=== PATIENT | male | born 1945 | race Caucasian/White ===

== ENCOUNTER 2019-05-06 07:25 | Day surgery (SDC) | payer OTHER ==
--- NOTE | 2019-05-05 09:32 | NUR ---
GAVE PT SURGERY REMINDER CALL. STATED HE HAD CALLED DR FLORES'S OFFICE ABOUT POISON OAK ON HIS ARMS AND ABDOMEN ( AT THE SURGICAL SITE). MESSAGED ADY AT DR Cabrera'S OFFICE. WAITING FOR RESPONSE.
--- NOTE | 2019-05-05 09:40 | NUR ---
ADY RETURNED CALL AND STATED THAT DR FLORES IS AWARE OF POISON OAK RASH AND IT IS OKAY TO PROCEED.
[~2019-05-06] VITALS: Ht 175.3 cm; Wt 94.2 kg
[2019-05-06] VITALS (20 sets, daily range): BP systolic 119–161; BP diastolic 51–88
[~2019-05-06 07:25] MED LIST: AMLO10TA PO; NAPR-996 PO; OMEG1CAP46 PO; PANT-47 PO; SIMV-42 PO; TERA5CAP4 PO; cefazolin/dext.iso 2gm/100ml 100 ML IV ONE; famotidine 10mg tablet PO ONE; ringers solution, lacted 1,000 ML IV SCH
[2019-05-06] MEDS ORDERED: diphenhydrAMINE 50 mg/ml inj IV ONE (09:05)
[2019-05-06 09:33] LABS: BASOPHILS # (AUTO) 0.1 X10'3 (0-0.2); BASOPHILS % (AUTO) 1.1 % (0-1); EOSINOPHILS # (AUTO) 0.7 X10'3 (0-0.9); EOSINOPHILS % (AUTO) 10.2 % (0-6); LYMPHOCYTES # (AUTO) 1.4 X10'3 (1.1-4.8); LYMPHOCYTES % (AUTO) 19.8 % (21-51); MEAN CORPUSCULAR HEMOGLOBIN 32.1 PG (27.0-31.0); MEAN CORPUSCULAR HGB CONC 35.2 g/dL (33.0-36.5); MEAN CORPUSCULAR VOLUME 91.1 FL (78-98); MEAN PLATELET VOLUME 10.1 FL (7.4-10.4); MONOCYTES # (AUTO) 0.7 X10'3 (0-0.9); NEUTROPHILS # (AUTO) 4.3 X10'3 (1.8-7.7); NEUTROPHILS % (AUTO) 58.9 % (42-75); PRE OP HEMATOCRIT 45.9 % (42.0-52.0); PRE OP HEMOGLOBIN 16.2 g/dL (14.0-17.9); PRE OP PLATELET COUNT 160 X10'3 (140-440); RED BLOOD COUNT 5.04 X10'6 (4.70-6.10); RED CELL DISTRIBUTION WIDTH 13.5 % (11.5-14.5)
[2019-05-06 09:47] LABS: ALBUMIN/GLOBULIN RATIO 1.1 (1.1-1.5); ALKALINE PHOSPHATASE 90 IU/L (46-116); BLOOD UREA NITROGEN 15 MG/DL (7-18); BUN/CREATININE RATIO 14.6 (5.4-32.0); CHLORIDE 106 MMOL/L (99-107); CREATININE 1.03 MG/DL (0.60-1.10); PRE OP ALT 30 U/L (30-65); PRE OP ANION GAP 9 (8-16); PRE OP AST 18 U/L (10-37); PRE OP BILIRUB, TOTAL 0.6 MG/DL (0.0-1.0); PRE OP GLUCOSE 105 MG/DL (70-104); PRE OP POTASSIUM 4.1 MMOL/L (3.4-5.1); PRE OP SODIUM 142 MMOL/L (135-145); TOTAL CARBON DIOXIDE 26.6 MMOL/L (24-32); TOTAL PROTEIN 7.5 G/DL (6.4-8.2); eGFR 70 ML/MIN
[2019-05-06] MEDS ORDERED: ringers solution, lacted 1,000 ML IV SCH (10:27)
[2019-05-06] MEDS ORDERED: ondansetron/PF 4mg/2ml inj IV PRN (10:30)
[2019-05-06] MEDS ORDERED: meperidine/PF 25mg/ml syringe IV PRN ×2 (10:30)
[2019-05-06] MEDS ORDERED: morphine 4 MG/ML inj SYRINge IV PRN ×2 (10:30)
[2019-05-06] MEDS ORDERED: proCHLORperazine 10 MG/2 ml inj IV PRN (10:30)
[2019-05-06] MEDS ORDERED: dexamethasone sod phosphate 10mg/ml inj ONE (11:28)
[2019-05-06] MEDS ORDERED: LIDOcaine 2% (20mg/ml) 5ml vial ONE (11:28)
[2019-05-06] MEDS ORDERED: ondansetron/PF 4mg/2ml inj ONE ×2 (11:28→11:53)
[2019-05-06] MEDS ORDERED: midazolam 2 mg/2 ml injection ONE (11:28)
[2019-05-06] MEDS ORDERED: ceFAZolin 1000mg inj ONE (11:28)
[2019-05-06] MEDS ORDERED: sevoflurane 250ml liquid IH ONE (11:28)
[2019-05-06] MEDS ORDERED: fentaNYL/PF 50MCG/1 ML 2ML syringe ONE ×2 (11:28→12:42)
[2019-05-06] MEDS ORDERED: propofol inj 20 ML IV ONE (11:28)
[2019-05-06] MEDS ORDERED: rocuronium 10mg/ml inj IV ONE (11:29)
[2019-05-06] MEDS ORDERED: BUPIVAcaine/PF 2.5 mg/ml (0.25%) 30ml vial ONE (11:29)
[2019-05-06] MEDS ORDERED: neostigmine methylsulfate 1 MG/ML 10ml vial ONE (11:54)
[2019-05-06] MEDS ORDERED: glycopyrrolate 0.2mg/ml inj ONE (11:54)
--- NOTE | 2019-05-06 13:09 | NUR ---
Received from OR via [facility], accompanied by Anesthesiologist DR JOHN and report given by Anesthesiologist. PT DROWSY, DENIES PAIN, ABDOMEN W/3 LAP SITES W/BANDAIDS CDI. Addendum: 05/06/19 at 1327 by Nancy Neal RN Amended: Links added.
[2019-05-06] MEDS: meperidine/PF 25mg/ml syringe IV PRN ×2 (13:57→14:09)
[2019-05-06] MEDS ORDERED: ketorolac trometh. 30mg/ml inj. IV ONE (15:00)
--- NOTE | 2019-05-06 16:23 | NUR ---
PT UP WALKING AROUND, ATTEMPTING TO VOID, PEPSI GIVEN. Addendum: 05/06/19 at 1623 by Nancy Neal RN Amended: Links added.
[2019-05-06] MEDS ORDERED: LIDOcaine 2% 10ml TOPICAL JELLY (Urojet) MM ONE (17:45)
--- NOTE | 2019-05-06 18:19 | NUR ---
PT VOIDED 100 ML OF LIGHT PINK URINE AFTER SEVERAL ATTEMPTS, BLADDER SCANNED FOR 537 ML URINE POST VOID, 16 TOGOLESE JOLLEY CATHETER PLACED W/STERILE TECHNIQUE, PT TOLERATED PROCEDURE WELL, 700 ML OF YELLOW URINE RETURN. D/C INSTRUCTIONS GIVEN AND GONE OVER W/PT AND PTS WHOM VERBALIZE UNDERSTANDING. PT D/CD TO HOME VIA W/C TO PRIVATE VEHICLE W/O INCIDENT. LATE NOTE: PT STABLE ON FEET W/AMBULATION, DECLINES ANY OTHER PAIN, INCLUDING LEFT SIDE, ONLY DISCOMFORT IS SURGICAL SITE. Addendum: 05/06/19 at 1839 by Nancy Neal RN Amended: Links added.
== END 2019-05-06 18:19 | disposition home or self-care (01) ==
LOC: PAS 07:25
PROVIDERS: ATTEND Surgery
DX: K40.90 Unilateral inguinal hernia, without obstruction or gangrene, not specified as recurrent (principal); I10 Essential (primary) hypertension; N40.0 Benign prostatic hyperplasia without lower urinary tract symptoms; E66.9 Obesity, unspecified; Z68.30 Body mass index [BMI] 30.0-30.9, adult; Z79.899 Other long term (current) drug therapy; Z96.643 Presence of artificial hip joint, bilateral; Z96.612 Presence of left artificial shoulder joint; Z90.49 Acquired absence of other specified parts of digestive tract; Z87.891 Personal history of nicotine dependence
CPT/HCPCS: 36415; 49650; 80053; 85025; C1713; C1781; J0690; J1100; J1200; J1885; J2001; J2175; J2250; J2405; J2704; J2710; J3010; J3490; J7120; A4215; A4314; A4618; A6258

== ENCOUNTER 2022-08-09 18:51 | Emergency (ER) | payer OTHER ==
[~2022-08-09] VITALS: Ht 175.3 cm; Wt 90.0 kg
[~2022-08-09 18:51] MED LIST changes: -cefazolin/dext.iso 2gm/100ml 100 ML IV ONE; -famotidine 10mg tablet PO ONE; -ringers solution, lacted 1,000 ML IV SCH
[2022-08-09 18:55] VITALS: BP 130/72
[2022-08-09] MEDS ORDERED: LIDOcaine 1% W/epiNEPHrine 1:100,000 20ml vial SQ ONE (19:50)
== END 2022-08-09 21:12 | disposition home or self-care (01) ==
LOC: ER 18:51
DX: S81.812A Laceration without foreign body, left lower leg, initial encounter (principal); Z88.8 Allergy status to other drugs, medicaments and biological substances; Z79.899 Other long term (current) drug therapy; Z79.1 Long term (current) use of non-steroidal anti-inflammatories (NSAID); X58.XXXA Exposure to other specified factors, initial encounter; Y93.89 Activity, other specified; Y99.8 Other external cause status; Y92.89 Other specified places as the place of occurrence of the external cause
CPT/HCPCS: 12002; 99282; J7030; 29505; A6258; A6449

== ENCOUNTER 2023-11-14 06:57 | Day surgery (SDC) | payer OTHER ==
[2023-11-13 11:46] LABS: BASOPHILS # (AUTO) 0.1 X10'3 (0-0.2); EOSINOPHILS # (AUTO) 0.2 X10'3 (0-0.9); EOSINOPHILS % (AUTO) 3.3 % (0-6); HEMATOCRIT 47.7 % (42.0-52.0); HEMOGLOBIN 16.3 g/dl (14.0-17.9); LYMPHOCYTES # (AUTO) 1.2 X10'3 (1.1-4.8); LYMPHOCYTES % (AUTO) 16.6 % (21-51); MEAN CORPUSCULAR HEMOGLOBIN 32.4 PG (27.0-31.0); MEAN CORPUSCULAR HGB CONC 34.2 g/dL (33.0-36.5); MEAN CORPUSCULAR VOLUME 94.7 FL (78-98); MEAN PLATELET VOLUME 9.5 FL (7.4-10.4); MONOCYTES # (AUTO) 0.8 X10'3 (0-0.9); MONOCYTES % (AUTO) 11.2 % (2-12); NEUTROPHILS # (AUTO) 4.8 X10'3 (1.8-7.7); NEUTROPHILS % (AUTO) 67.9 % (42-75); PLATELET COUNT 200 X10'3 (140-440); RED BLOOD COUNT 5.04 X10'6 (4.70-6.10); RED CELL DISTRIBUTION WIDTH 13.4 % (11.5-14.5); WHITE BLOOD COUNT 7.1 X10'3 (4.5-11.0)
[2023-11-13 11:56] LABS: ALBUMIN 4.2 G/DL (3.4-5.0); ANION GAP 8 (8-16); BLOOD UREA NITROGEN 12 MG/DL (7-18); BUN/CREATININE RATIO 9.8 (10.0-20.0); CALCIUM 9.5 MG/DL (8.5-10.1); CHLORIDE 103 MMOL/L (99-107); CREATININE 1.22 MG/DL (0.60-1.10); GLUCOSE 106 MG/DL (70-104); POTASSIUM 4.2 MMOL/L (3.5-5.1); SODIUM 139 MMOL/L (135-145); TOTAL CARBON DIOXIDE 28.1 MMOL/L (24-32); eGFR 57 ML/MIN
[2023-11-13 11:58] LABS: INR 1.1 INR; PROTHROMBIN TIME 11.1 SECONDS (9.0-12.0)
[~2023-11-14] VITALS: Ht 175.3 cm; Wt 89.7 kg
[2023-11-14] MEDS ORDERED: amiodarone 150mg/dext, iso-os 100 ML IV ONE (07:15)
[2023-11-14] MEDS ORDERED: normal saline 1000ml 1,000 ML IV SCH (07:15)
[2023-11-14] MEDS ORDERED: MIDAZolam 1mg/ml 10ml vial IV ONE (07:15)
[2023-11-14] MEDS ORDERED: morphine 10mg/ml inj. IV ONE (07:15)
[2023-11-14] MEDS ORDERED: diphenhydrAMINE 25mg capsule PO ONE (07:15)
[2023-11-14] MEDS ORDERED: LORazepam 0.5 MG tablet PO ONE (07:15)
[2023-11-14] MEDS ORDERED: atropine 0.1mg/ml 10ml syringe IV ONE (07:15)
[2023-11-14] MEDS ORDERED: CHOL100017 PO (07:37)
[2023-11-14] MEDS ORDERED: PANT40TA54 PO (07:37)
[2023-11-14] MEDS ORDERED: AMI200T (07:37)
[2023-11-14] MEDS ORDERED: APIX5TAB3 PO (07:37)
[2023-11-14] MEDS ORDERED: FLO0.4C (07:37)
== END 2023-11-14 08:40 | disposition home or self-care (01) ==
LOC: SSTAY O 06:57
PROVIDERS: ATTEND Internal Medicine Cardiovascular Disease
DX: I48.91 Unspecified atrial fibrillation (principal); Z53.8 Procedure and treatment not carried out for other reasons; I10 Essential (primary) hypertension; E78.5 Hyperlipidemia, unspecified; K21.9 Gastro-esophageal reflux disease without esophagitis; F32.A Depression, unspecified; Z79.899 Other long term (current) drug therapy; Z90.49 Acquired absence of other specified parts of digestive tract; Z96.612 Presence of left artificial shoulder joint; Z96.643 Presence of artificial hip joint, bilateral; Z98.890 Other specified postprocedural states; Z80.9 Family history of malignant neoplasm, unspecified; Z82.49 Family history of ischemic heart disease and other diseases of the circulatory system
CPT/HCPCS: 36415; 80048; 85025; 85610; 93005; J7030

== ENCOUNTER 2024-02-28 11:35 | Day surgery (SDC) | payer OTHER ==
[2024-02-27 12:09] LABS: BASOPHILS # (AUTO) 0.1 X10'3 (0-0.2); BASOPHILS % (AUTO) 0.8 % (0-1); EOSINOPHILS # (AUTO) 0.3 X10'3 (0-0.9); EOSINOPHILS % (AUTO) 4.5 % (0-6); HEMATOCRIT 45.4 % (42.0-52.0); HEMOGLOBIN 15.5 g/dl (14.0-17.9); LYMPHOCYTES # (AUTO) 1.5 X10'3 (1.1-4.8); LYMPHOCYTES % (AUTO) 19.3 % (21-51); MEAN CORPUSCULAR HEMOGLOBIN 31.9 PG (27.0-31.0); MEAN CORPUSCULAR HGB CONC 34.1 g/dL (33.0-36.5); MEAN CORPUSCULAR VOLUME 93.5 FL (78-98); MEAN PLATELET VOLUME 9.8 FL (7.4-10.4); MONOCYTES # (AUTO) 0.8 X10'3 (0-0.9); MONOCYTES % (AUTO) 9.9 % (2-12); NEUTROPHILS % (AUTO) 65.5 % (42-75); PLATELET COUNT 179 X10'3 (140-440); RED BLOOD COUNT 4.86 X10'6 (4.70-6.10); RED CELL DISTRIBUTION WIDTH 13.8 % (11.5-14.5); WHITE BLOOD COUNT 7.6 X10'3 (4.5-11.0)
[2024-02-27 12:19] LABS: ALBUMIN 3.7 G/DL (3.4-5.0); ANION GAP 9 (8-16); BLOOD UREA NITROGEN 15 MG/DL (7-18); CALCIUM 9.2 MG/DL (8.5-10.1); CHLORIDE 105 MMOL/L (99-107); CREATININE 1.25 MG/DL (0.60-1.10); GLUCOSE 97 MG/DL (70-104); POTASSIUM 4.4 MMOL/L (3.5-5.1); SODIUM 141 MMOL/L (135-145); TOTAL CARBON DIOXIDE 27.4 MMOL/L (24-32); eGFR 56 ML/MIN
[2024-02-27 12:22] LABS: APTT 27 SECONDS (22-32); PROTHROMBIN TIME 10.4 SECONDS (9.0-12.0)
[2024-02-28] VITALS (11 sets, daily range): BP systolic 109–147; BP diastolic 66–84; PULSE 58–84; RESP 12–22; TEMP 98.2; O2SAT 94–99
[~2024-02-28] VITALS: Ht 172.7 cm; Wt 88.8 kg
[~2024-02-28 11:35] MED LIST changes: +AMI200T; +APIX5TAB3 PO; +CHOL100017 PO; +FLO0.4C; -NAPR-996 PO; -OMEG1CAP46 PO; -PANT-47 PO; +PANT40TA54 PO
[2024-02-28] MEDS ORDERED: METO-395 PO (12:03)
[2024-02-28] MEDS ORDERED: OMEG-166 PO (12:03)
[2024-02-28] MEDS ORDERED: LOSA25TA41 PO (12:03)
[2024-02-28] MEDS ORDERED: ceFAZolin 2gm in dextrose, iso 50 ML IV ONE (12:20)
[2024-02-28] MEDS: normal saline 1000ml 1,000 ML IV SCH (12:31)
[2024-02-28] MEDS ORDERED: fentaNYL/PF 50MCG/1 ML 2ML syringe ONE ×2 (13:50→15:27)
[2024-02-28] MEDS ORDERED: LIDOcaine 1% W/epiNEPHrine 1:100,000 20ml vial ONE (13:50)
[2024-02-28] MEDS ORDERED: ceFAZolin 1000mg inj ONE (13:50)
[2024-02-28] MEDS ORDERED: midazolam 1 mg/ML 2ml injection ONE ×4 (13:50→15:27)
[2024-02-28] MEDS ORDERED: diphenhydrAMINE 50 mg/ml inj ONE (14:50)
[2024-02-28] MEDS ORDERED: HYDROcodone/acetaminophen 5mg/325mg tablet PO PRN (17:40)
[2024-02-28] MEDS ORDERED: HYDROcodone/acetaminophen 10/325mg tab PO PRN (17:40)
[2024-02-28] MEDS ORDERED: CEPH-585 PO (17:58)
[2024-02-28] MEDS: HYDROcodone/acetaminophen 10/325mg tab PO PRN (18:04)
== END 2024-02-28 19:30 | disposition home or self-care (01) ==
LOC: SSTAY O 11:35
PROVIDERS: ATTEND Internal Medicine Cardiovascular Disease
DX: I49.5 Sick sinus syndrome (principal); R00.1 Bradycardia, unspecified; R94.31 Abnormal electrocardiogram [ECG] [EKG]; I10 Essential (primary) hypertension; E78.5 Hyperlipidemia, unspecified; K21.9 Gastro-esophageal reflux disease without esophagitis; I48.0 Paroxysmal atrial fibrillation; F32.A Depression, unspecified; Z79.01 Long term (current) use of anticoagulants; Z79.899 Other long term (current) drug therapy; Z90.49 Acquired absence of other specified parts of digestive tract; Z96.612 Presence of left artificial shoulder joint; Z96.643 Presence of artificial hip joint, bilateral; Z98.890 Other specified postprocedural states; Z82.49 Family history of ischemic heart disease and other diseases of the circulatory system
CPT/HCPCS: 33208; 36415; 71046; 80048; 85025; 85610; 85730; 93005; 99152; 99153; C1785; J0690; J1200; J2250; J3010; J3490; J7030; A4565; A6258; A6449; C1898

== ENCOUNTER 2024-12-16 14:40 | Outpatient (CLI) | payer OTHER ==
[~2024-12-16 14:40] MED LIST changes: -AMI200T; +AMIO200T76; +CEPH-585 PO; -FLO0.4C; +LOSA25TA41 PO; +METO-395 PO; +OMEG-166 PO
--- NOTE | 2024-12-16 16:05 | RADIOLOGY REPORT ---
EXAM: MR MRI LUMBAR SPINE INDICATION: LUMBAR BACK PAIN TECHNIQUE: Multiplanar, multisequence MR images of the lumbar spine were obtained without the adminis tration of IV contrast. COMPARISON: None FINDINGS: [ANATOMY]: Five lumbar-type vertebral bodies are present. The most inferior well-formed disc space wi ll be referred to as L5-S1 for purposes of numbering in this report. [VERTEBRAL BODIES]: The vertebral bodies are normal in height, alignment, and marrow signal. [SPINAL CANAL]: The conus medullaris is normal in signal and morphology, terminating at the L1-L2 lev el. Severe spinal canal narrowing with effacement of the normal CSF signal and buckling of the cauda equina nerve roots at L2-3 and L3-4 measures down to 3-4 mm. Prominent ligamentum flavum buckling of the levels [FACETS]: [id number] bilateral multilevel facet arthropathy. [OTHER]: None. LEVEL BY LEVEL DISCUSSION: [T12-L1]: Trace broad-based posterior disc protrusion [L1-L2]: Trace 2-3 mm broad-based posterior disc protrusion. Mild posterior epidural lipomatosis. [L2-L3]: Facet arthropathy with prominent ligamentum flavum buckling and mild posterior epidural lipo matosis. Trace circumferential disc bulge. Severe spinal canal narrowing. Ksbv-vv-[id number] left-gre ahyz-pmwq-[id number] foraminal narrowing [L3-L4]: Severe spinal canal narrowing down to 3 mm. Prominent ligamentum flavum buckling. Facet art hropathy segments and severe bilateral foraminal narrowing [L4-L5]: Trace posterior disc osteophyte complex severe right-sided foraminal narrowing secondary to facet arthropathy [L5-S1]: Trace broad-based posterior disc protrusion extending into bilateral inferior foramina. Mil d bilateral facet arthropathy . At least moderate bilateral foraminal narrowing IMPRESSION: 1. Severe spinal canal narrowing most conspicuous at L2-3 and L3-4 with buckling of the cauda equina nerve roots primarily secondary to facet arthropathy and ligamentum flavum buckling. 2. Superimposed disc herniations multilevel neural foraminal narrowing.
== END 2024-12-16 23:59 | disposition home or self-care (01) ==
LOC: MRI 14:40
PROVIDERS: ATTEND Family Medicine
DX: M47.26 Other spondylosis with radiculopathy, lumbar region (principal); G57.93 Unspecified mononeuropathy of bilateral lower limbs; M48.061 Spinal stenosis, lumbar region without neurogenic claudication
CPT/HCPCS: 72148